=== PATIENT | female | born 1945 | race Caucasian/White ===

== ENCOUNTER 2019-06-18 10:36 | Outpatient (CLI) | payer MEDICARE | END 2019-06-18 23:59 | disposition home or self-care (01) | LOC: CFH 10:36 | PROVIDERS: ATTEND Physician Assistant | DX: S73.192A Other sprain of left hip, initial encounter (principal); X58.XXXA Exposure to other specified factors, initial encounter; Y93.89 Activity, other specified; Y92.89 Other specified places as the place of occurrence of the external cause; Y99.8 Other external cause status ==